=== PATIENT | male | born 1960 | race Two or more races ===

== ENCOUNTER 2020-02-16 09:52 | Inpatient (IN) | payer SELFPAY ==
[~2020-02-16] VITALS: Ht 167.6 cm; Wt 88.1 kg
--- NOTE | 2020-02-16 10:29 | NUR ---
PT LAYING IN BED, NO DISTRESS, STATES PAIN IN RLQ ABD FOR 2 DAYS,
[2020-02-16] MEDS ORDERED: MORPHINE SULFATE 4 MG/ML, 1ML IVPush PRN (10:30)
[2020-02-16] MEDS ORDERED: SODIUM CHLORIDE FLUSH 10ML SYR IVF ONE (10:30)
[2020-02-16] MEDS ORDERED: SODIUM CHLORIDE 0.9% 1,000ML IVBOLUS ONE (10:30)
[2020-02-16] MEDS ORDERED: ONDANSETRON 2MG/ML, 2ML IVPush ONE (10:30)
[2020-02-16 10:55] LABS: MEAN CORPUSCULAR HEMOGLOBIN 31.6 pg (27.5-34.5); MEAN CORPUSCULAR HGB CONC 33.7 g/dL (33.2-36.2); MEAN PLATELET VOLUME 8.6 fL (7.4-10.4); PLATELET COUNT 201 x10^3/uL (130-400); RED BLOOD COUNT 5.12 x10^6/uL (4.38-5.82); RED CELL DISTRIBUTION WIDTH 13.5 % (9.4-14.8)
[2020-02-16 10:58] LABS: ALBUMIN 3.6 g/dL (3.4-5.0); ANION GAP 3 mmol/L (5-15); CALCIUM 8.6 mg/dL (8.5-10.1); CHLORIDE 105 mmol/L (98-107)
[2020-02-16 11:00] LABS: ALANINE AMINOTRANSFERASE 64 U/L (12-78); ALKALINE PHOSPHATASE 96 U/L (45-117); BILIRUBIN,TOTAL 1.1 mg/dL (0.2-1.0); CREATININE 1.11 mg/dL (0.7-1.3); TOTAL PROTEIN 7.9 g/dL (6.4-8.2)
[2020-02-16] MEDS ORDERED: ONDANSETRON 2MG/ML, 2ML ONE (11:18)
[2020-02-16] MEDS ORDERED: OMNIPAQUE 350 MG/ML, 100ML BOTTLE ONE (11:49)
[2020-02-16 11:51] LABS: MICROSCOPIC INDICATED
[2020-02-16 12:15] LABS: MD YES
[2020-02-16 12:18] LABS: BAND#(MANUAL) 1.86 x10^3/uL; BANDS%(MANUAL) 15 % (0-7); LYMPH#(MANUAL) 0.37 x10^3/uL (1-3.4); LYMPHS% (MANUAL) 3 % (22-44); METAMYELOCYTES# (MANUAL) 0.12 x10^3/uL (0-0); METAMYELOCYTES% (MANUAL) 1 % (0-1); MONOS#(MANUAL) 0.37 x10^3/uL (0.3-2.7); MONOS% (MANUAL) 3 % (2-9); SEG#(MANUAL) 9.67 x10^3/uL (1.8-6.8); SEGS% (MANUAL) 78 % (42-75)
[2020-02-16 12:20] LABS: <PLATELET ESTIMATE> ADEQUATE; <PLT MORPHOLOGY> NORMAL PLT MORPH; <RBC MORPHOLOGY> NORMAL
--- NOTE | 2020-02-16 12:23 | NUR ---
BREAK RN- PT RESTING IN BED, VSS, MEDICATION REQUESTED FROM PHARMACY.
[2020-02-16] MEDS ORDERED: CEFOTETAN PMX 1GM/50ML 50 ML IVPB ONE (12:30)
[2020-02-16] MEDS ORDERED: SODIUM CHLORIDE FLUSH 10ML SYR IVF PRN (13:00)
[2020-02-16] MEDS ORDERED: SODIUM CHLORIDE 0.9% 1,000 ML IV ONE (13:00)
--- NOTE | 2020-02-16 14:15 | NUR ---
PT IN BED NO DISTRESS, IVAB RUNNING, DAUGHTER AT BEDSIDE
[2020-02-16] MEDS ORDERED: ONDANSETRON 2MG/ML, 2ML IVPush PRN (15:30)
[2020-02-16] MEDS ORDERED: BACLOFEN 10 MG TABLET PO PRN (15:30)
[2020-02-16] MEDS ORDERED: ONDANSETRON ODT 4 MG PO PRN (15:30)
[2020-02-16] MEDS ORDERED: HYDROmorphone 2 MG/ML, 1ML IVPush PRN (15:30)
[2020-02-16] MEDS ORDERED: GUAIFENESIN/DM 200-20MG, 10ML UDC PO PRN (15:30)
[2020-02-16] MEDS ORDERED: LABETALOL 5MG/ML, 20ML IVPush PRN (15:30)
[2020-02-16] MEDS ORDERED: ENALAPRILAT 1.25 MG/ML, 2ML IVPush PRN (15:30)
--- NOTE | 2020-02-16 17:43 | NUR ---
BREAK RN- REPORT CALLED TO SAM ARMAS
[2020-02-16] MEDS: ENOXAPARIN 40 MG/0.4 ML SQ SCH (18:10)
[2020-02-16] MEDS: D5%-0.45NACL+KCL 20MEQ 1,000 ML IV SCH (18:23)
[2020-02-16] MEDS: PIPERACILLIN/TAZO/PMX 3.375GM 50 ML IV SCH (18:24)
[2020-02-16 19:34] VITALS: BP 127/78
[2020-02-17 01:28] VITALS: BP 116/73
[2020-02-17] MEDS ORDERED: FLU VACC QS2020-21(6MOS UP)/PF 60MCG/0.5 ML SYR IM-VACC ONE (02:00)
[2020-02-17] MEDS: PIPERACILLIN/TAZO/PMX 3.375GM 50 ML IV SCH (02:04)
[2020-02-17] MEDS: D5%-0.45NACL+KCL 20MEQ 1,000 ML IV SCH ×2 (03:27→15:37)
[2020-02-17 05:26] LABS: BASOPHILS % (AUTO) 0 % (0-1); EOSINOPHILS % (AUTO) 0 % (1-7); LYMPHOCYTES % (AUTO) 7 % (22-44); MEAN CORPUSCULAR HEMOGLOBIN 31.8 pg (27.5-34.5); MEAN CORPUSCULAR HGB CONC 34.2 g/dL (33.2-36.2); MEAN PLATELET VOLUME 8.8 fL (7.4-10.4); MONOCYTES % (AUTO) 6 % (2-9); NEUTROPHILS % (AUTO) 86 % (42-75); PLATELET COUNT 167 x10^3/uL (130-400); RED CELL DISTRIBUTION WIDTH 13.4 % (9.4-14.8)
[2020-02-17 05:38] LABS: ANION GAP 7 mmol/L (5-15); CALCIUM 8.1 mg/dL (8.5-10.1); CHLORIDE 106 mmol/L (98-107)
[2020-02-17 05:39] LABS: CREATININE 0.85 mg/dL (0.7-1.3)
[2020-02-17 06:06] LABS: MD SCAN
[2020-02-17 07:05] VITALS: BP 123/74
[2020-02-17] MEDS: AMPICILLIN/SULBACTAM 3 GM in SODIUM CHLORIDE 0.9% 100 ML IV SCH ×3 (11:26→23:30)
[2020-02-17 13:12] VITALS: BP 122/76
[2020-02-17 13:18] VITALS: BP 108/66
[2020-02-17] MEDS ORDERED: ACETAMINOPHEN 325 MG TABLET PO PRN (15:00)
[2020-02-17] MEDS ORDERED: POTASSIUM PHOSPHATE 44 MEQ in SODIUM CHLORIDE 0.9% 500 ML IV ONE (15:00)
[2020-02-17] MEDS: ENOXAPARIN 40 MG/0.4 ML SQ SCH (18:13)
[2020-02-17 18:47] VITALS: BP 118/73
[2020-02-18 00:28] VITALS: BP 123/79
[2020-02-18] MEDS: D5%-0.45NACL+KCL 20MEQ 1,000 ML IV SCH (01:30)
[2020-02-18] MEDS: AMPICILLIN/SULBACTAM 3 GM in SODIUM CHLORIDE 0.9% 100 ML IV SCH ×2 (05:23→11:20)
[2020-02-18 05:52] LABS: BASOPHILS % (AUTO) 1 % (0-1); EOSINOPHILS % (AUTO) 1 % (1-7); LYMPHOCYTES % (AUTO) 16 % (22-44); MEAN CORPUSCULAR HEMOGLOBIN 31.6 pg (27.5-34.5); MEAN CORPUSCULAR HGB CONC 34.1 g/dL (33.2-36.2); MEAN PLATELET VOLUME 9.2 fL (7.4-10.4); MONOCYTES % (AUTO) 8 % (2-9); NEUTROPHILS % (AUTO) 75 % (42-75); PLATELET COUNT 186 x10^3/uL (130-400); RED BLOOD COUNT 4.99 x10^6/uL (4.38-5.82); RED CELL DISTRIBUTION WIDTH 13.4 % (9.4-14.8)
[2020-02-18 05:57] LABS: ALBUMIN 2.7 g/dL (3.4-5.0); ANION GAP 6 mmol/L (5-15); CALCIUM 8.2 mg/dL (8.5-10.1); CHLORIDE 107 mmol/L (98-107)
[2020-02-18 06:02] LABS: ALANINE AMINOTRANSFERASE 61 U/L (12-78); ALKALINE PHOSPHATASE 144 U/L (45-117); TOTAL PROTEIN 6.9 g/dL (6.4-8.2)
[2020-02-18 06:02] LABS: MD NO
[2020-02-18 07:20] VITALS: BP 120/76
[2020-02-18] MEDS ORDERED: OXYC-307 PO (10:29)
[2020-02-18] MEDS ORDERED: AMOX1TAB64 PO (10:29)
[2020-02-18] MEDS ORDERED: ZINC220T3 PO (11:08)
[2020-02-18] MEDS ORDERED: ASCO500T7 PO (11:09)
== END 2020-02-18 12:25 | disposition home or self-care (01) | DRG 177 ==
LOC: ED 12:14 → EDIP 12:42 → 3N 18:00
PROVIDERS: ADMIT Surgery; ATTEND Internal Medicine Infectious Disease
DX: U07.1 COVID-19 (principal); J12.89 Other viral pneumonia; K35.80 Unspecified acute appendicitis; R17 Unspecified jaundice; E86.0 Dehydration; Z79.899 Other long term (current) drug therapy; Z41.2 Encounter for routine and ritual male circumcision; D72.829 Elevated white blood cell count, unspecified; R82.4 Acetonuria
CPT/HCPCS: 36415; 71045; 74177; 80053; 80069; 81001; 83690; 83735; 84100; 85025; 87635; 90686; G0378; J0295; J1170; J1650; J2405; J2543; Q9967; J3480; J7030; J7040